=== PATIENT | male | born 1990 | race Caucasian/White ===

== ENCOUNTER 2017-04-24 17:48 | Inpatient (IN) | payer MEDICARE, OTHER ==
[~2017-04-24] VITALS: Ht 180.3 cm; Wt 37.7 kg
[~2017-04-24 17:48] MED LIST: ACETAMINOPHEN325 M1 NG; ANTIFUNGAL30 GM TOP; BACLOFEN20 MG; BACTRIM DS TAB1 EACH PO; BISAC-EVAC10 MG PR; BISCOLAX10 MG PR; CARISOPRODOL350 MG PO; CEFDINIR300 MG PO; CEFPODOXIME PR200 MG PO; CEFTRIAXONE2 G1 IV; CEPHALEXIN500 MG PO; CHILD CHEW VIT1 EACH PO; CHLORPROMAZINE TOP; CLONIDINE HCL0.1 MG PO; CULTURELLE1 EACH NG; CYCLOBENZAPRINE10 MG NG; CYCLOBENZAPRINE10 MG PO; CYCLOBENZAPRINE10 MG PT; DIAZEPAM2 MG PO; DIAZEPAM5 MG PO; DILAUDID2 MG PO; ENSURE LIQUID237 ML PO; FENTANYL1 EAC2 TD; FENTANYL1 EAC4 TD; FENTANYL1 EACH TD; FERROUS SULFAT325 MG PT; FIBERCON1 TABLET; FIBERCON1 TABLET PO; GABAPENTIN100 MG PO; GABAPENTIN300 MG PO; HYDROMORPHONE HC2 MG PO; IPRAT-ALBUT 0.5-3 ML INH; K-TAB ER20 MEQ PO; KEFLEX500 MG PO; LEVAQUIN500 MG PO; LOPERAMIDE2 MG NG; LORAZEPAM1 MG PO; MAG-OXIDE400 MG PT; MIRALAX17 GM; MIRALAX17 GM PO; MIRALAX17 GM PT; MORPHINE SULFAT30 M2 PO; MULTI-VITAMIN1 EACH PT; NICOTINE PATCH1 EAC1 TOP; NUTREN PT; NYAMYC15 GM TOP; NYSTATIN100000 UN1 TOP; NYSTATIN15 G1 TOP; NYSTOP60 GM TOP; ONDANSETRON ODT8 MG PO; ORAZINC220 MG PO; OXYCODONE HCL10 MG PO; OXYCODONE HCL15 MG; OXYCODONE HCL15 MG NG; OXYCODONE HCL15 MG PO; OXYCODONE HCL15 MG PT; OXYCODONE HCL20 M1 PO; OXYCODONE HCL30 MG PO; OXYCODONE HCL5 MG PO; POLYETHYLENE G255 GM PO; POLYSPORIN OI28.3 GM TOP; POTASSIUM 25 M25 MEQ PO; POTASSIUM CHLO10 ME1 PO; POTASSIUM CHLO10 MEQ NG; POTASSIUM CHLO20 ME1 PO; POTASSIUM20 MEQ/15 PO; POTASSIUM20 MEQ/15 PT; PROMETHAZINE-COD5 ML PO; PROSOURCE PROT946 ML PT; SENNA LAX8.6 MG PO; SULFAMETHOXAZO473 M1 PO; TIZANIDINE HCL4 MG PO; TUMS200 MG PO; TYLENOL325 MG PT; VALIUM2 MG PO; VALIUM5 MG PO; VANCOMYCIN1.25 GM/25 IV; VITAMIN C500 M2 PT; WARFARIN SODIU2.5 MG PO; WARFARIN SODIUM1 MG PO; WARFARIN SODIUM5 MG PO; ZINC SULFATE220 M1 PO; ZINC30 M1 PO; ZOFRAN ODT4 MG PO; [UNRECOGNIZED DRUG - OTHER] NG
[2017-04-24] MEDS ORDERED: DIAZEPAM5 MG PT (18:06)
--- NOTE | 2017-04-24 23:35 | NUR ---
PATIENT ARRIVED VIA STRETCHER. PATIENT TRANSFERRED TO HOSPITAL BED VIA STAFF. PATIENT ARRIVED AROUND 2215. PATIENTS ATTEND CHANGED. UMM CARE PERFORMED. PATIENT HAS X3 LARGE PRESSURE SORES ON HIS COCYX AREA. PICTURES TAKEN AND PLACED IN PATIENT CHART. PATIENT IS ON A REGULAR DIET. PATIENT FED A LUCH BOX. PATIENT IS A QUADRIPLEGIC AND TOUCH IS ABSENT. PATIENT GIVEN PRN PAIN MEDICATION PER ORDER. PATIENTS GAUZE DRESSING CHANGED AROUND SUPRAPUBIC. PATIENT DENIES ANY NEEDS AT THIS TIME. BABY MONITOR PLACED IN ROOM FOR PATIENT TO BE ABLE TO COMMUNICATE WITH STAFF.
--- NOTE | 2017-04-25 01:02 | EKG ---
[facility] [address] [facility] [facility] [place] [address] Signed Sinus tachycardia Right atrial enlargement Right ventricular hypertrophy with repolarization abnormality Lateral infarct (cited on or before 07-AUG-2016) T wave abnormality, consider inferior ischemia Abnormal ECG When compared with ECG of 07-AUG-2016 15:24, Questionable change in initial forces of Lateral leads T wave inversion now evident in Anterior leads Confirmed by ALVINO RYAN MD ([id number]) on 04/25/2017 1:02:31 AM Electronically Signed By: ALVINO RYAN MD 04/25/17 0102 PATIENT NAME: ITZEL FRANKLIN Electrocardiogram DATE OF : [birth year] PHYSICIAN: ALVINO RYAN MD REPORT #: [id number] REPORT IS CONFIDENTIAL AND NOT TO BE RELEASED WITHOUT AUTHORIZATION
--- NOTE | 2017-04-25 01:35 | NUR ---
PATIENT IS RESTING IN BED WITH EYES CLOSED, RR 19. PATIENTS BREATHING IS EVEN AND UNLABORED. BABY MONITOR IS IN THE ROOM FOR PATIENT TO ALERT STAFF TO NEEDS.
--- NOTE | 2017-04-25 03:27 | NUR ---
PATIENT REPOSTIONED WITH A PILLOW UNDER HIS LEFT SIDE. PATIENT TOLERATED ACTIVITY WELL. PATIENT RECEIVED PRN PAIN MEDICATION FOR 8/10 PAIN IN HIS NECK. PATIENT REQUESTED APPLE JUICE PATIENTS REQUESTS MET. PATIENT DENIES ANY FURTHER NEEDS. CALL LIGHT IS WITHIN REACH.
--- NOTE | 2017-04-25 05:04 | NUR ---
PATIENT GIVEN PRN PAIN MEDICATION FOR 7/10 PAIN IN HIS NECK. PATIENT GIVEN SIPS OF JUICE. PATIENT DENIES ANY FURTHER NEEDS AT THIS TIME.
--- NOTE | 2017-04-25 06:05 | NUR ---
PATIENT CALLED OUT TO STAFF. PATIENT STATED "I FEEL LIGHT HEADED AND DIZZY, LIKE THE ROOM IS SPINNING" PATIENTS VITALS TAKEN. PATIENTS EYES CONTINUE TO ROLL AROUND AND HAVE RAPID MOVMENT. PATIENT STATES "I JUST DONT FEEL RIGHT" HOSPITALIST CALLED. NEW ORDERS GIVEN AND VERIFIED USING THE READBACK METHOD. PATIENT IS NOW ON TELE #10. PATIENT IS ALSO RECEIVING A 1L BOLUS.
--- NOTE | 2017-04-25 06:20 | NUR ---
PATIENT IS NOW FEELING BETTER. PATIENT STATED "I JUST DONT FEEL WELL, BUT I FEEL BETTER THAN BEFORE" PATIENT IS NO TELE #10 AND HE IS IN SINUS TACH AND HIS HR IS 123
--- NOTE | 2017-04-25 06:21 | NUR ---
PATIENT RESTED ON AND OFF SINCE ARRIVAL TO THE FLOOR. PATIENT RECEIVED PRN PAIN MEDICATION SEVERAL TIMES. PATIENT IS ON 2L VIA NC. PATIENT IS ON TELE#10. PATIENT HAS BEEN TURNED Q2. PATIENT IS ON A REG DIET AND REQUIRES TO BE FED. PATIENT IS A QUAD AND REQUIRES ASSISTANCE WITH ALL CARE. PATIENT HAD A BM X1. PATIENT HAS BEEN COMPLIANT WITH CARE. PATIENT IS AAOX3. PATIENT HAS X3 SORES ON HIS COCYX.
--- NOTE | 2017-04-25 10:30 | NUR ---
PATIENT RESTING IN BED THROUGHOUT MORNING, EATING BREAKFAST. ADMINISTERED MORNING MEDICAITONS PER PEG TUBE, TOLERATED WELL. FIELD SOFTWARE ENGINEER ASSISTED WITH EATING THEN TURNED PATIENT TO LEFT SIDE. LUNG SOUNDS DIMINISHED. ALEVYN DSG INTACT. ON TELE. NOW RESTING EASY WITH EYES CLOSED. PATIENT HAS BABY MONITOR TO CALL FOR ASSISTANCE AND PATIENT IS CLOSE TO NURSES STATION, PROVIDING FREQUENT CHECKS
--- NOTE | 2017-04-25 13:37 | NUR ---
PT SLEEPING. CHECKED SEVERAL TIMES. DO NOT WISH TO WAKE HIM. WILL CONTINUE TO FOLLOW
--- NOTE | 2017-04-25 13:48 | NUR ---
EXTENSIVE CONVERSATION WITH PT REGARDING THE NEED FOR HIM TO COOPERATE WITH HIS CARE OR HE IS GOING TO END UP DYING, PT STATES HIS TUBE FEEDINGS MAKE HIM NAUSEATED SO HE STOPS SOON THAT OCCURS, STATES HE DOESN'T FEEL WELL WHEN THE HOME HEALTH NURSES COME TO CHANGE HIS CATH OR CHANGE WOUND DRESSING, "I DON'T REFUSE I JUST WANT THEM TO COME BACK ANOTHER DAY WHEN I FEEL BETTER" PT WT IS DOWN TO 83LBS.
--- NOTE | 2017-04-25 14:03 | NUR ---
ASSUMED CARE. BILLET EXAMINER IN WITH PT FEEDING HIM. PT DENIES NEEDS AT THIS TIME.
--- NOTE | 2017-04-25 14:27 | NUR ---
MED REC COMPLETE-PER PATIENT
--- NOTE | 2017-04-25 14:57 | NUR ---
HOME HEALTH AND CASE MANAGEMENT IN TO TALK WITH PT REGARDING POST DISCHARGE CARE.
--- NOTE | 2017-04-25 15:43 | NUR ---
PT TURNED TO L SIDE USING PILLOWS. ELBOWS FLOATED ON PILLOWS.
--- NOTE | 2017-04-25 16:55 | NUR ---
PT REQUESTS PAIN MED. OXYCODONE 15 MG CRUSHED FOR FEEDING TUBE. EXTRA PORT ON FEEDING TUBE POPS OPEN AND MED SPRAYS OUT, NOT GETTING TO PT. ADDITIONAL 15 MG ADMINISTERED INTO FEEDING TUBE SUCCESSFULLY. PT DENIES ADDTIONAL NEEDS. RESTING OFF BACK ON PILLOWS. BABY MONITOR ON. PT ROOM ACROSS FROM RN STATION.
--- NOTE | 2017-04-25 17:12 | NUR ---
PT CALLS FOR HELP. RN TO ROOM. PT STATES FEELS LIKE HE IS GOING TO "BLACK OUT" AND IS GETTING "TUNNEL VISION". PT STATES FEELS VERY LIGHT HEADED. VITALS OBTAINED. O2 SAT 78% ON RA. 10 L O2 VIA OXYMASK APPLIED. O2 SATS IMMEDIATELY INCREASE TO 100 %. HR REMAINS UNCHANGED AT 118-122 THROUGHOUT EPISODE. PT STATES TUNNEL VISION RESOLVED AFTER SATS INCREASE. REMAINS LIGHTHEADED. FALLS ASLEEP IMMEDIATELY AFTER EPISODE. CONT PULSE OX PLACED. NOTIFIED.
--- NOTE | 2017-04-25 17:45 | NUR ---
IN TO SEE PT. MD TOOK PT OFF O2. SATS 95% ON RA. RN TO ROOM WITH PULSE OX ALARMING. SATS 84%. PT PLACED BACK ON 2 L O2 NC. STATES FEELS BETTER, BUT STILL LIGHT HEADED. FALLS ASLEEP DURING A CONVERSATION. HR REMAINS ELEVATED AT 120 PER TELEMETRY.
--- NOTE | 2017-04-25 18:28 | NUR ---
PT RECEIVING OXYCODONE FOR PAIN. CHANGED TO EVERY 4 HOURS PER HOME SCHEDULE. TURN Q 2. MAG AND K RIDERS TODAY. HOME HEALTH IN TO TALK WITH PT REGARDING ACCEPTING CARE AFTER DISCHARGE. PT AGREES AT THIS TIME. CONT PULSE OX PLACED D/T PT DESATTING TO 70'S ON RA. O2 ON AT 2 L NC. BABY MONITOR ON AT RN STATION TO HEAR PT. NEEDS ASSITANCE WITH MEALS, PO FLUIDS. MEDS PER TUBE. MEDIHONEY IN PT BIN FOR NEXT DRESSING CHANGE ON 04/27 PER HOME HEALTH.
--- NOTE | 2017-04-25 18:43 | NUR ---
SUPRAPUBIC CATHETER CHANGED USING STERILE TECHNIQUE PER MD ORDER.
--- NOTE | 2017-04-25 19:25 | NUR ---
RECEIVED REPORT FROM DAY SHIFT RN. PATIENT WOULD LIKE PAIN MEDICATION WHEN AVAILABLE. PATIENT IS CURRENTLY BEING FED HIS DINNER.
--- NOTE | 2017-04-25 19:47 | NUR ---
Helped patient with dinner.
--- NOTE | 2017-04-25 20:05 | NUR ---
PATIENT GIVEN EVENING MEDICAITONS PER ORDER. PATIENT GIVEN PRN PAIN MEDICAITON PER ORDER. FOR 8/10 PAIN IN HIS NECK. PATIENT REPOSTIIONED. PATIENT TOLERATED ACTIVITY WELL. PATIENT IS APPRECIATIVE FOR HIS CARE. PATIENT IS ON 2L VIA NC. PATIENT IS ON A PULSE OX AND READINGS ARE WNL. PATIENT IS ON TELE #10 HR 98. BABY MONITOR IS IN THE ROOM SO THAT PATIENT IS ABLE TO COMMUNICATE WITH STAFF
--- NOTE | 2017-04-25 21:55 | NUR ---
PATIENTS HR HAS INCREASED TO 133. CCU CALLED AND PATIENT IS NOT IN SUSTAINED VTACH WILL CONTINUE TO MONITOR.
--- NOTE | 2017-04-25 22:14 | NUR ---
CALLED DR. LUZ FOR UPDATED ONPATIENT. PATIENT SUSTAINING TACHYCARDIA FOR 15MIN ( 133-134) PATIENT RR 10. HARDER TO WALK UP FROM SLEEP. CALLED RT TO EVALUATE PATIENT. UPDATED DR. LUZ INREGARDS TO ALL NEW INFORMATION. NO NEW ORDERS GIVEN. PLAN TO MONITOR PATIENT. CONTINUE TO BE ON TEL. CONTINUE PULSE OX IN PLACE. PATIENT IS REQURING OXYGEN AT 2 L TO MAINTAIN OXYGEN SATURDATION AT 92 PERCENT.
--- NOTE | 2017-04-25 22:23 | NUR ---
PATIENS VITALS EVALUATED AND RECORDER. PATIENTS RESPIRATIONS ARE SHALLOW AND RR IS 10. RT CALLED TO EVALUATE PATIENT. SPOKE WITH HOSPITALIST. NO NEW ORDERS AT THIS TIME. WILL CONTINUE TO MONITOR.
--- NOTE | 2017-04-26 00:06 | NUR ---
PATIENT IS RESTING IN BED WITH EYES CLOSED. VITALS TAKEN AND RECORDED. PATIENT IS ON TELE #10 HR 125. PATIENT IS ON 2L VIA NC AND PULSE OX READINGS ARE WNL. PATIENT HAS BABY MONITOR IN HIS ROOM SO HE CAN ALERT STAFF TO NEEDS.
--- NOTE | 2017-04-26 01:36 | NUR ---
PATIENT TUBE FEEDINGS STARTED. PATIENT PLACED ON 35ML AND HOUR. PATIENT STATED "PLEASE START OUT LOW, I GET VERY NAUSEOUS WITH FEEDINGS" PATIENT DE NIES ANY FURTHER NEEDS AT THIS TIME.
--- NOTE | 2017-04-26 02:53 | NUR ---
PATIENT ALLOWED STAFF TO BATH HIM HEAD TO TOE. PATIENTS HAIR WASHED. PATIENT WAS VERY APPRECIATIVE OF CARE. PATIENT STATED MULTIPLE TIMES "THANK YOU SO MUCH, I FEEL SO MUCH BETTER" PATIENT IS ON BED WITH NEW BEDDING AND NEW GOWN. NEW ALLYVN WITH MEDIHONEY APPLIED TO WOUNDS ON PATIENTS COCYX. AN ALYVYN DRESSING WITH MEDIHONEY PLACED ON PATIENTS LEFT HEAL. PATIENT COVERED WITH WARM BLANKET AN BEAR HUGGER PLACED UNDER BLANKET PATIENT IS VERY COLD. PATIENT DENIES ANY FURTHER NEEDS. BABY MONITOR IS ON BEDISDE TABLE SO PATIENT CAN ALERT STAFF TO NEEDS. PATIENT ALSO SHAVED PER REQUEST.
--- NOTE | 2017-04-26 04:55 | NUR ---
PATIENT IS RESTING IN BED WITH EYES CLOSED. PULSE OX READING IS WNL.
--- NOTE | 2017-04-26 05:34 | NUR ---
PATIENT RESTED WELL FOR THE MAJORITY OF THE SHIFT. PATIENT IS ON A REG DIET AND IS TOLERATING WELL. PATIENT REQUIRES ASSISTANCE WITH FEEDINGS. PATIENT ALSO RECEIVED X2 CANS OF TUBE FEEDINGS. PATIENT IS ON A CONTINUOUS PULSE OX AND 2L VIA NC. PATIENT IS ON TELE #10. PATIENT HAS A SUPRAPUBIC CATHETER AND URINE OUTPUT IS QS. PATIENT HAD A BM X1. PATIENT RECEIVED PRN PAIN MEDICATION X2. PATIENT RECEIVED A BED BATH, HAIR WASHED, ORAL CARE, AND SHAVED. PATIENT HAS NEED VERY PLEASANT AND APPRECIATIVE OF CARE. PATIENT IS AAOX3. PATIENT HAS A BABY MONITOR IN ROOM SO THAT HE IS ABLE TO COMMUNICATE WITH STAFF.
--- NOTE | 2017-04-26 06:32 | NUR ---
PATIENT REPOSTIONED. PATIENT GIVEN PRN PAIN MEDICATION PER ORDER. PATIENT ALSO GIVEN PRN TYLENOL FOR AN ELEVATED TEMP. PATIENTS VITALS TAKEN AND RECORDED. PATIENT DENIES NAY FURTHER NEEDS. CALL LIGHT IS WITHIN REACH.
--- NOTE | 2017-04-26 06:55 | NUR ---
PATIENT HAS AN ELEVATED HR. PLACE A CALL TO HOSPITALIST. NO NEW ORDERS AT THIS TIME. WILL CONTINUE TO MONITOR.
--- NOTE | 2017-04-26 07:50 | NUR ---
BEDSIDE REPORT RECEIVED FROM RYAN. ASSUMING PATIENT CARE AT THIS TIME. PATIENT ASLEEP DURING REPORT. MATHEMATICS PROFESSOR NURSE AND THIS RN TRIED TO WAKE PATIENT UP WITH NO SUCCESS. PATIENT HAD THE SAME EPISODE EARLIER THIS AM, THAT MATHEMATICS PROFESSOR NOTIFIED DR LUZ. PATIENT OFF THE FLOOR TO CT AT THIS TIME.
--- NOTE | 2017-04-26 09:35 | NUR ---
PATIENT FOUND IN BED SLEEPING, UNABLE TO WAKE HIM UP. MULTIPLE ATTEMPT, PATIENT MOANED, AND OPEN HIS EYES. ASSESSMENT DONE. BOWEL TONE POSITIVE. PEG TUBE IN PLACE. IV SITE PATENT AND FLUID IS INFUSING. MD AWARE OF PATIENT CONDITION. CBG CHECK 128, HR 124, BP 90/52. RR 12, SAT 96 ON 2L OF O2.
--- NOTE | 2017-04-26 10:00 | NUR ---
PATIENT AWAKE NOW, ASKING FOR WATER. PATIENT WAS REPOSITIONED. HR STILL IN THE UPPER 120. WILL CONTINUE TO MONITOR PATIENT.
--- NOTE | 2017-04-26 11:05 | NUR ---
PATIENT AWAKE A&O. DR LUZ WAS IN ROOM TO SEE AND EVALUATE PATIENT. DISCUSS PLAN OF CARE WITH PATIENT AND PATIENT'S MOTHER. MORNING MEDS ADMINISTERED VIA PEG TUBE. PATIENT TOLERATED WELL. PATIENT REPOSITIONED, RESTING AT THIS TIME WATCHING TV.
--- NOTE | 2017-04-26 13:05 | NUR ---
PATIENT REPOSITIONED. PATIENT ASKED FOR SIPS OF WATER. TOLERATED WELL. NO ACUTE DISTRESS NOTED. RESTING IN BED AT THIS TIME.
--- NOTE | 2017-04-26 15:10 | NUR ---
PATIENT CALLED AND REQUESTED TO BE SUCTIONED. SUCTION DONE. PATIENT WAS REPOSITIONED. NO APPARENT DISTRESS.
--- NOTE | 2017-04-26 18:30 | NUR ---
PATIENT SLEPT ON AND OFF DURING THIS SHIFT. OXY AND VALIUM ADMINISTERED. PEG TUBE IN PLACE AND PATIENT TOLERATED MED THROUGH PEG TUBE WELL. DENIES NAUSEA. DECUBITUS ULCERS IN THE BUTTOCKS COVER WITH ALLEVYN. PATIENT REPOSITIONED Q2HRS. DID NO EAT MUCH TODAY. HAD CHEST CT DONE THIS AM. NEW IV SITE ESTABLISHED. FLUID AND ABX INFUSING WELL. HEEL PROTECTOR AND ELBOW PROTECTOR IN PLACE.
--- NOTE | 2017-04-26 20:00 | NUR ---
RECEIVED REPORT AT 1999. PT WAS IN BED SLEEPING BUT AROUSABLE.
--- NOTE | 2017-04-26 22:08 | NUR ---
PT AT THIS TIME IS SLEEPING DUE TO 15MG OF PO OXYCODONE. PT IS HOWEVER AROUSABLE TO VOICE. I WILL HOLD SCHEDULED VALIUM AT THIS TIME HOWEVER. PT ALSO HAD NAUSEA AFTER OXY ADMINISTRATION AND WE CAME TO AN AGREEMENT TO HOLD HIS TUBE FEEDING FOR NOW. HIS MOTHER BROUGHT TUBE FEEDING FORMULA X4 THIS EVENING. NO NEW ISSUES NOTED AT THIS TIME.
--- NOTE | 2017-04-26 23:32 | NUR ---
PT IS SLEEPING AT THIS TIME.
--- NOTE | 2017-04-27 00:20 | NUR ---
PT AT THIS TIME IS AWAKE AND ALERT. PT WANTED HIS OXY NOW AND THE SCHEDULED VALIUM. I TOLD PT THAT I WOULD NOT GIVE HIM THE VALIUM AND THE OXY BECAUSE HIS O2 SATS WERE AROUND 85% THE LAST TIME I GAVE HIM OXY PO 15MG. PT AT THIS TIME IS ALSO NOT ABLE TO HOLD ANY MORE THAN 30ML WITHOUT GETTING NAUSEA AND STARTING TO GAG. I TOLD MD LUZ THAT I HELD THE SCHEDULED VALIUM AND WHY. HE ALSO GAVE ME AN ORDER FOR 4MG OV IV ZOFRAN BUT PT IS STILL HAVING NAUSEA. MD LUZ SAID TO HOLD HIS TUBE FEEDINGS FOR TONIGHT.
--- NOTE | 2017-04-27 01:47 | NUR ---
PT RECEIVED 15MG OF PO OXY AND 650MG OF TYLENOL AT AROUND 0050. PT IS SLEEPING AT THIS TIME. O2 SATS ARE BETWEEN 87%-95%. PT STILL GOT NAUSEA WHEN MEDS WERE GIVEN VIA FEEDING TUBE. PT RECEIVED 30ML VIA FEEDING TUBE. HE WAS UNABLE TO TOLERATE ANY ADDITIONAL WATER. I DID ROM WITH FINGERS, WRISTS, ELBOWS, SHOULDERS, FEET, KNEES AND HIPS. PT ALSO HAS BEEN TURNED, ALEEVYN WAS APPLIED TO RIGHT ELBOW AND BOTH ELBOWS ARE FLOATING AT THIS TIME.
--- NOTE | 2017-04-27 04:55 | NUR ---
PT RECEIVED OXY 15MG X2 THUS FAR. WITH THE FIRST DOSE, PT HAD O2 SATS IN THE MID 80'S AT FIRST. HE WAS AROUSABLE BY VOICE THOUGH. THE SECOND DOSE WAS TOLERATED BETER BY PT. HE IS AT 2.5 L OF O2 AT THIS TIME. TUBE FEEDING WAS HELD PER MD LUZ BECAUSE PT WAS UNABLE TO TOLERATE EVEN SMALL QUANTITIES OF LIQUIDS VIA HIS J-TUBE. AT AROUND 0400 HE WAS HUNGRY AND ATE A WHOLE SANDWICH AND TOLERATED IT WELL. I WILL GIVE HIM HIS THIRD DOSE OF OXY IN A FEW MINUTES.
--- NOTE | 2017-04-27 06:45 | NUR ---
PT AT THIS TIME HAS A HR OF 140'S. HE ALSO HAS A TEMP OF 100.4 AND HIS SBP WAS 101. MD LUZ WAS CALLED. BLOOD CULTURES AND A CBC WAS ORDERED. TYLENOL PRN WILL BE GIVEN EARLY PER MD LUZ WELL.
--- NOTE | 2017-04-27 07:53 | NUR ---
PATIENT WAS SLEEPING HEAVILY WHEN I CHECKED IN THIS MORNING, I WILL DO AM CARE WHEN HE WAKES UP.
--- NOTE | 2017-04-27 08:55 | NUR ---
PATIENT ATE ALL OF HIS BREAKFAST AND I PERFORMED AM CARE ON HIM.
--- NOTE | 2017-04-27 09:30 | NUR ---
PATIENT REQUESTING PAIN MEDICATION THIS MORNING, HOLD VALIUM SECONDARY TO NOTED DROWSINESS THROUGHOUT THE NIGHT. VALIUM DECREASED TO 1MG AND HELD MORNING DOSE PERD DR. LUZ. PATIENT VERBALIZED CONCERNCED OF NOT HAVING BOWEL MOVEMENT, NURSE INTIATED ORDER FOR SUPPOSITORY, AND PROVIDED RECTAL STIMULATION PER HOME BOWEL PROGRAM. NO RESULTS YET, NOTED CHARTED PATIENT HAD BM 04/26/2017. C/O PAIN IN LOWER NECK STATES " STIFF" ADMINISTERED PAIN MEDICATION AND MORNING MEDICATIONS PER FEEDING TUBE. DR. LUZ VERBALIZED TO HOLD TUBE FEEDING AT THIS TIME. PATIENT HAS LOW GRADE TEMP 99.1 TRENDING DOWN FROM LAST TEMP TAKEN OF 100.4. REPOSITIONED PATIENT, EATING BREAKFAST. APPEARS TO BE TOLERATING WELL. STATES " I AM NOT FEELING FULL LIKE I DID LAST NIGHT" ADBOMEN FIRM, BOWEL TONES ACTIVE. RODRIGUEZ DRAINING WELL. FULL BODY ASSESMENT DONE.
--- NOTE | 2017-04-27 12:45 | NUR ---
NOTED RASH ON CHEST EXCORIATED AND SPREAD TO ARMS, BLOOD CULTURES COLLECTED AND BLOOD WORK. PATIENT CONTINUES TO APPEAR DROWSY. NOW ON DROPLET PERCAUTION, PATIENT STATES " I WANT MORE PAIN MEDICATION" DISCUSSED HOLDING PAIN MEDICAITON UNTIL LESS DROWSY AND MORE AWAKE. PATIENT VERBALIZED UNDERSTANDING. DISCUSSED POC WITH PATIENT'S MOTHER, UPDATING HER. CHANGED T-DRAIN SPONGE AT FEEDING TUBE SITE, YELLOW PURULENT DRAINAGE NOTED. DR. NATTY CASE.
--- NOTE | 2017-04-27 14:25 | NUR ---
patient had wounds tht needed redressed i assisted the nurse, he had a rash appearing, he is now on droplet precautions.
--- NOTE | 2017-04-27 17:30 | NUR ---
DISCUSSED WITH TIG WELDER AND NEED FOR AIR BED SECONDARY TO DECONDITIONING OF SKIN, VERBALIZED OKAY. BED ARRIVED 1700. CONTINUE TO REPOSITION PATIENT. PATIENT IS COMPLIANT WITH CARE. CONTINUES TO APPEAR DROWSY, SKIN IS WARM. AFEBRILE AT THIS TIME, VS STABLE. PATIENT REQUESTING PAIN MEDICATION, EXPLAINED TO PATIENT AT THIS TIME APPEARS TOO DROWSY. LEFT ROOM, WHEN RETURNED WITH FRESH ICE WATER PATIENT SLEEPING. NO COMPLAINTS OF NAUSEA SINCE IV REGLAN ADMINISTERED. IV ANTBIOTICS CHANGED MAXIPIME. LA 0.3, IV FLUIDS CONTINUE TO INFUSE AT 75ML/HR. BLOOD CULTURES PENDING. BLOOD WORK FOR EBV CAPSID Ag igmAB AND RUBELLA IGM ANTIBODY ARE PENDING. LAB CALLED TO FLOOR SAID RESULTS WOULD TAKE 3-4 DAYS. RR 14 OXYGEN SATURATION 98% 1.5L NC PATIENT BREATHING EASY. NO RESIDUAL WITH PEG TUBE.
--- NOTE | 2017-04-27 18:45 | NUR ---
NOTED INCREASED DROWSINESS WITH PATIENT, VALIUM DECREASED TO 1MG BID. MORNING DOSE HELD SECONDARY TO DROWSINESS. DRESSING TO COCCYX REDRESSED, PICTURES IN CHART, MYNOR WITH MEDIHONEY TO WOUND SITES AT COCCYX. AIR BED PROVIDED TO PATIENT SECONDARY TO CONTINUED SKIN BREAKDOWN, AND ALLEVYN DRSG TO HEELS SCOT AND ELBOWS SCOT. SKIN RASH NOTED SPREADING FROM CHEST TO ARMS, BLOOD WORK PENDING, NOW ON DROPLET PERCAUTIONS. INCREASED COMPLAINTS OF PAIN IN NECK AND BASE OF HEAD, DR. LUZ AWARE. 1-2 L NC TO MAINTAIN >90%, AFEBRILE, VS STABLE. DECREASED APPETITIE, ATE WELL AT BREAKFAST. TOO DROWSY AT LUNCH AND DINNER TIME. OFFERED SNACKS AND ENSURE THROUGHOUT DAY, PATIENT REFUSED. PEG TUBE FLUSHES WELL. RODRIGUEZ PUTTING LARGE AMOUNTS OF URINE. SUPPOSITORY ADMINISTERED, NO RESULTS. PATIENT COMPLIANT WITH REPOSITIONING AND POC FOR DAY.
--- NOTE | 2017-04-27 20:39 | NUR ---
RECEIVED REPORT AT 1930. FOUND PT IN BED NEEDING PAIN MEDICATION. AT AROUND 2014 OXYCODON 15MG WAS GIVEN ALING WITH SCHEDULED MEDS. DIAZEPAM 1MG WAS HELD FOR NOW TO SEE HOW SEDATED PT IS GETTING FROM OXY. MD LUZ IS AWARE. TUBE FEEDINGS HAVE BEEN STARTED AT 2030 AT 30ML/HR. THUS FAR PT IS TOLERATING IT WELL. WILL REEVALUATE SEDATION IN ABOUT 15 MIN.
--- NOTE | 2017-04-27 23:23 | NUR ---
PT AT THIS TIME IS SLEEPING. TUBE FEEDING IS STILL GOING, O2 SATS ARE WNL, V/S WERE WNL EXCEPT HIS HR WHICH IS 12'S-130'S. ALL LOBES ARE DIMINISHED AND CLEAR. RESIDUAL CHECK WILL BE DONE AROUND 0030. NO NEW ISSUES NOTED AT THIS TIME.
--- NOTE | 2017-04-28 00:42 | NUR ---
THERE WAS NO RESIDUAL THAT I WAS ABLE TO PULL BACK. PT IS SLEEPING AND SEDATED BUT HIS O2 SATS AT >95%. HR IS STILL IN THE 120'S. HIS STOMACH HOWEVER IS SLIGHTLY DISTENDED AND THEREFORE I LEFT THE TUBE FEEDING RATE AT 30ML/HR. I WILL CONTINUE AGAIN IN A HALF HOUR.
--- NOTE | 2017-04-28 01:37 | NUR ---
TUBE FEENDING AT THIS TIME WAS STOPPED PER PT REQUEST. PT HAS NAUSEA. WILL GIVE ZOFRAN
--- NOTE | 2017-04-28 02:06 | NUR ---
15MG OF OXY WERE GIVEN A FEW MINUTES AGO AFTER PT STATED A PAIN OF 9. PT ALSO STATED THAT HE HAD NAUSEA, 4MG OF ZOFRAN WERE GIVEN. AT THIS TIME PT IS VERY SEDATED WITH RR 11. O2 AT THIS TIME IS AT 4L. WILL CONTINUE TO MONITOR CLOSELY.
--- NOTE | 2017-04-28 04:19 | NUR ---
AT THIS TIME TUBE-FEEDING HAS RESUMED. PT STATED THAT HE WAS OK WITH THAT. PT DENIES NAUSEA AT THIS TIME. RATE IS 30ML/HR AT THIS TIME. PT IS STILL SLEEPY BUT IS ABLE TO COMMUNICATE. PT IS ORIENTED X3
--- NOTE | 2017-04-28 04:52 | NUR ---
TUBE-FEEDING HAS BEEN STOPPED. PT SAID HIS STOMACH HURTS. PT COMPLAINS OF HEADACHE AND GENERAL PAIN. PT IS STILL DROWSEY AND I WANT TO HOLD OFF ON THE OXY. I GAVE HIM 650MG OF TYLENEOL.
--- NOTE | 2017-04-28 05:52 | NUR ---
PT TOLERATED TUBE FEEDINGS AT FIRST. AT AROUND 0100 I HAD TO STOP IT BECAUSE PT COMPLAINED OF NAUSEA. PT RECEIVED OXY THE LAST TIME AT 0200. PT HAD TROUBLE KEEPING O2 SATS UP AND O2 HAD TO BE INCREASED TO 4L AT THAT TIME. AT THIS TIME PT IS BACK ON 2L OF O2 BUT STILL VERY DROWSEY. PT AT THIS TIME IS UNABLE TO FORM ANY CLEAR SENTENCES AND IS UNABLE TO EXPRESS HIS NEEDS. THIS IS A CHANGE IN MENTAL STATUS FROM YESTERDAY. PT IS ORIENTED TO PLACE, CIRCUMSTANCE AND PERSON. MD LUZ WAS CALLED AND HE WILL COME UP TO SEE HIM. V/S WERE WNL EXCEPT HIS HR. PT HAS BEEN TACHYCARDIC ALL NIGHT.
--- NOTE | 2017-04-28 06:33 | NUR ---
PT NOW HAS A RECTAL TEMP OF 103.7. TEMP PREVIOUSLY WAS TAKEN AXILLARY BECAUSE PT WOULD NOT CLOSE HIS MOUTH WHEN ATTEMPTING TO TAKE TEMP ORALLY. MD LUZ WAS CALLED. ORDERS FOR BLOOD CULTURES WERE GIVEN.
--- NOTE | 2017-04-28 06:59 | NUR ---
PT HAS AMS AT THIS TIME. MD LUZ HAS BEEN CALLED X2. WILL CALL AGAIN IN THE NEXT FEW MINUTES. RASH OVERALL HAS NOT CHANGED THIS SHIFT.
--- NOTE | 2017-04-28 08:50 | NUR ---
BEDSIDE REPORT RECEIVED FROM ANTWAN ATWOOD. DR LUZ CALLED TO ASSESS PT BASED ON INCREASE IN TEMP TO 103.7 AND MENTAL STATUS CHANGED. URINE OUTPUT GOOD IN RODRIGUEZ-- NEW URINE SENT TO LAB FOR CULTURE. TEMP 101.2 ORALLY. ASSESSMENT UNCHANGED BESIDES TEMPERATURE. RASH ON CHEST PRESENT. PT CALLING OUT FOR HELP WHEN STAFF IN ROOM. MEDS GIVEN THROUGH G-TUBE AND IV. ORDER FOR SPINAL TAP STAT IN. PLAN TO TRANSFER PT D/T INABILITY TO DO HEART ECHO TODAY.
--- NOTE | 2017-04-28 10:17 | NUR ---
ROCEPHIN, VANCO, AND OXYCODONE GIVEN TO PATIENT. VANCO INFUSING NOW. WILL PLAN TO GET SPINAL TAP THIS MORNING BEFORE SHIPPING PT TO [facility]. MOTHER AT BEDSIDE NOW.
--- NOTE | 2017-04-28 11:36 | NUR ---
[facility] TRANSPORTED PT OFF FLOOR AT 1130.
== END 2017-04-28 11:30 | disposition short-term general hospital (02) | DRG 871 ==
LOC: ED 17:48 → MS 22:00
PROVIDERS: ADMIT Internal Medicine
DX: A41.9 Sepsis, unspecified organism (principal); G82.50 Quadriplegia, unspecified; R21 Rash and other nonspecific skin eruption; E86.0 Dehydration; R00.0 Tachycardia, unspecified; L89.152 Pressure ulcer of sacral region, stage 2; Z93.1 Gastrostomy status; G89.4 Chronic pain syndrome
CPT/HCPCS: 36415; 71010; 71260; 80048; 80053; 80069; 81001; 82607; 82728; 82746; 83540; 83605; 83735; 84100; 84439; 84443; 84466; 85025; 85045; 86665; 86762; 87040; 87077; 87088; 87186; 93005; 93010; 94762; J0692; J0696; J1170; J1650; J1956; J2405; J2765; J3370; J3475; J3480; J7030; Q9967

== ENCOUNTER 2017-05-18 20:16 | Emergency (ER) | payer MEDICARE, OTHER ==
[~2017-05-18] VITALS: Ht 180.3 cm; Wt 37.6 kg
[~2017-05-18 20:16] MED LIST changes: +DIAZEPAM5 MG PT
[2017-05-18] MEDS ORDERED: LORAZEPAM1 MG PO (20:28)
== END 2017-05-18 23:54 | disposition home or self-care (01) ==
LOC: ED 20:16
DX: M54.2 Cervicalgia (principal); H53.9 Unspecified visual disturbance; Z87.891 Personal history of nicotine dependence; Z88.8 Allergy status to other drugs, medicaments and biological substances; Z88.6 Allergy status to analgesic agent; Z79.899 Other long term (current) drug therapy; S14.109D Unspecified injury at unspecified level of cervical spinal cord, subsequent encounter; G82.50 Quadriplegia, unspecified; V49.9XXD Car occupant (driver) (passenger) injured in unspecified traffic accident, subsequent encounter
CPT/HCPCS: 80053; 85025; 96361; 96374; 96375; 99283; J2405; J7030

== ENCOUNTER 2017-05-30 17:15 | Emergency (ER) | payer MEDICARE, OTHER ==
[~2017-05-30] VITALS: Ht 180.3 cm; Wt 37.6 kg
== END 2017-05-30 22:14 | disposition home or self-care (01) ==
LOC: ED 17:15
DX: G90.4 Autonomic dysreflexia (principal); L89.159 Pressure ulcer of sacral region, unspecified stage; L89.329 Pressure ulcer of left buttock, unspecified stage; L89.319 Pressure ulcer of right buttock, unspecified stage; G82.50 Quadriplegia, unspecified; R64 Cachexia; Z87.440 Personal history of urinary (tract) infections; Z87.891 Personal history of nicotine dependence; Z79.899 Other long term (current) drug therapy; Z88.8 Allergy status to other drugs, medicaments and biological substances; Z88.1 Allergy status to other antibiotic agents
CPT/HCPCS: 71010; 74000; 81001; 87077; 87088; 87186; 99283

== ENCOUNTER 2017-06-02 17:17 | Emergency (ER) | payer MEDICARE, OTHER ==
[~2017-06-02] VITALS: Ht 180.3 cm; Wt 43.1 kg
== END 2017-06-02 19:42 | disposition short-term general hospital (02) ==
LOC: ED 17:17
DX: A41.9 Sepsis, unspecified organism (principal); N39.0 Urinary tract infection, site not specified; Z87.891 Personal history of nicotine dependence; Z88.8 Allergy status to other drugs, medicaments and biological substances; Z79.899 Other long term (current) drug therapy; Z79.891 Long term (current) use of opiate analgesic
CPT/HCPCS: 71010; 87040; 96374; 99285; J2060

== ENCOUNTER 2017-06-12 13:16 | Emergency (ER) | payer MEDICARE, OTHER ==
[~2017-06-12] VITALS: Ht 180.3 cm; Wt 43.1 kg
[2017-06-12] MEDS ORDERED: ALBUTEROL2.5 MG/3 M INH (13:28)
[2017-06-12] MEDS ORDERED: SULFAMETHOXAZO473 M1 PO (17:54)
--- NOTE | 2017-06-12 20:55 | EKG ---
[facility] [address] [facility] [place] [address] Signed Sinus tachycardia Biatrial enlargement Right ventricular hypertrophy Possible Lateral infarct (cited on or before 07-AUG-2016) ST \T\ T wave abnormality, consider inferior ischemia Abnormal ECG When compared with ECG of 24-APR-2017 18:13, Questionable change in initial forces of Lateral leads Non-specific change in ST segment in Anterolateral leads T wave inversion no longer evident in Anterior leads Confirmed by HI LUZ MD ([id number]) on 06/12/2017 8:55:16 PM Electronically Signed By: HI LUZ MD 06/12/[id number] PATIENT NAME: ITZEL FRANKLIN Electrocardiogram DATE OF : [birth year] PHYSICIAN: HI LUZ MD REPORT #: [id number] REPORT IS CONFIDENTIAL AND NOT TO BE RELEASED WITHOUT AUTHORIZATION
== END 2017-06-12 19:02 | disposition home or self-care (01) ==
LOC: ED 13:16
DX: N39.0 Urinary tract infection, site not specified (principal); F11.23 Opioid dependence with withdrawal; Z88.1 Allergy status to other antibiotic agents; Z88.8 Allergy status to other drugs, medicaments and biological substances; Z79.899 Other long term (current) drug therapy; Z79.891 Long term (current) use of opiate analgesic
CPT/HCPCS: 81001; 87077; 87088; 87186; 93005; 93010; 99284

== ENCOUNTER 2017-06-15 13:10 | Emergency (ER) | payer MEDICARE, OTHER ==
[~2017-06-15] VITALS: Ht 180.3 cm; Wt 40.8 kg
[~2017-06-15 13:10] MED LIST changes: +ALBUTEROL2.5 MG/3 M INH
[2017-06-15] MEDS ORDERED: CREON DR 12,001 EACH PO (13:29)
== END 2017-06-15 15:21 | disposition home or self-care (01) ==
LOC: ED 13:10
DX: N39.0 Urinary tract infection, site not specified (principal); G82.50 Quadriplegia, unspecified; Z87.442 Personal history of urinary calculi; Z88.1 Allergy status to other antibiotic agents; Z88.8 Allergy status to other drugs, medicaments and biological substances; Z98.890 Other specified postprocedural states; Z86.711 Personal history of pulmonary embolism; Z79.899 Other long term (current) drug therapy
CPT/HCPCS: 99283

== ENCOUNTER 2017-06-23 19:31 | Emergency (ER) | payer MEDICARE, OTHER ==
[~2017-06-23] VITALS: Ht 180.3 cm; Wt 40.8 kg
[~2017-06-23 19:31] MED LIST changes: +CREON DR 12,001 EACH PO
== END 2017-06-23 21:59 | disposition home or self-care (01) ==
LOC: ED 19:31
PROC: 4A0D7LZ Measurement of Urinary Volume, Via Natural or Artificial Opening (ICD-10-PCS; principal; 2017-06-23)
DX: T83.091A Other mechanical complication of indwelling urethral catheter, initial encounter (principal); R82.79 Other abnormal findings on microbiological examination of urine; Z87.891 Personal history of nicotine dependence; Z88.2 Allergy status to sulfonamides; Z88.1 Allergy status to other antibiotic agents; Z88.8 Allergy status to other drugs, medicaments and biological substances; Z79.899 Other long term (current) drug therapy
CPT/HCPCS: 36415; 51798; 80053; 85025; 99284